=== PATIENT | male | born 1970 | race Two or more races ===

== ENCOUNTER 2024-04-20 09:35 | Outpatient (CLI) | payer OTHER | END 2024-04-20 09:44 | disposition home or self-care (01) | LOC: RAD 09:35 | PROVIDERS: ATTEND Specialist | DX: M54.50 Low back pain, unspecified (principal); M15.0 Primary generalized (osteo)arthritis ==

== ENCOUNTER 2024-07-26 14:56 | Outpatient (CLI) | payer OTHER | END 2024-07-26 14:59 | disposition home or self-care (01) | LOC: LAB 14:56 → RAD 14:56 → LAB 14:59 | PROVIDERS: ATTEND General Practice | DX: B20 Human immunodeficiency virus [HIV] disease (principal); A54.9 Gonococcal infection, unspecified; A74.9 Chlamydial infection, unspecified; A53.9 Syphilis, unspecified; S32.009A Unspecified fracture of unspecified lumbar vertebra, initial encounter for closed fracture ==

== ENCOUNTER 2024-08-04 12:50 | Outpatient (CLI) | payer OTHER | END 2024-08-04 12:59 | disposition home or self-care (01) | LOC: TOM 12:50 | PROVIDERS: ATTEND Specialist | DX: M47.816 Spondylosis without myelopathy or radiculopathy, lumbar region (principal) ==

== ENCOUNTER 2024-08-28 13:32 | Outpatient (CLI) | payer OTHER ==
[2024-08-28 14:10] LABS: HEMATOCRIT 38.4 % (39.0-48.0); HEMOGLOBIN 13.4 g/dL (13-16.00); MEAN CELL VOLUME 82.6 fL (80.0-100.00); MEAN CORPUSCULAR HEMOGLOBIN 28.8 pg (27.00-32.0); MEAN CORPUSCULAR HGB CONC 34.9 g/dl (32.0-36.0); PLATELET COUNT 247 K/uL (150-450); RED BLOOD COUNT 4.65 M/uL (4.00-6.00); RED CELL DISTRIBUTION WIDTH 13.9 % (11.5-14.5)
[2024-08-28 14:15] LABS: INR 1.1; PARTIAL THROMBOPLASTIN TIME 27.6 SECONDS (22.0-34.0); PROTHROMBIN TIME 11.9 SECONDS (9.0-11.5)
== END 2024-08-28 13:38 | disposition home or self-care (01) ==
LOC: LAB 13:32
PROVIDERS: ATTEND Anesthesiology Pain Medicine
DX: R79.1 Abnormal coagulation profile (principal)

== ENCOUNTER 2025-01-24 10:34 | Outpatient (CLI) | payer OTHER | END 2025-01-24 10:35 | disposition home or self-care (01) | LOC: MRI 10:34 | DX: M54.17 Radiculopathy, lumbosacral region (principal) | CPT/HCPCS: 72148 ==